=== PATIENT | male | born 1945 ===

== ENCOUNTER 2018-02-24 11:25 | Inpatient (IN) ==
[2018-02-24] MEDS ORDERED: Propofol 1000 mg/100 ml Inj 1,000 MG/100 ML BOTTLE ONE (11:40)
[2018-02-24 11:49] LABS: Baso # (Auto) 0.1 th/mm3 (0.0-0.2); Baso % (Auto) 0.8 % (0.0-2.0); Eos # (Auto) 0.1 th/mm3 (0.0-0.4); Eos % (Auto) 1.2 % (0.0-4.0); Hematocrit 39.9 % (39.0-51.0); Hemoglobin 13.5 gm/dL (13.0-17.0); Lymph # (Auto) 2.4 th/mm3 (1.0-4.8); Lymph % (Auto) 21.7 % (9.0-44.0); Mean Corpuscular Volume 91.2 fL (80.0-100.0); Mean Platelet Volume 8.7 fL (7.0-11.0); Mono # (Auto) 0.7 th/mm3 (0.0-0.9); Mono % (Auto) 5.8 % (0.0-8.0); Neut # (Auto) 7.9 th/mm3 (1.8-7.7); Neut % (Auto) 70.5 % (16.0-70.0); Platelet Count 186 th/mm3 (150-450); Red Blood Count 4.37 mil/mm3 (4.50-5.90); Red Cell Distribution Width 13.9 % (11.6-17.2); White Blood Count 11.2 th/mm3 (4.0-11.0)
[2018-02-24] MEDS ORDERED: Midazolam Inj 5 MG/ML 1 ML Vial ONE (11:54)
[2018-02-24] MEDS ORDERED: Etomidate Inj 20 MG/10 ML Ampul IV.PUSH ONE (11:55)
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
[2018-02-24 12:05] LABS: Activated Partial Thrombo Time 19.6 sec (24.3-30.1); Prothrombin Time 10.6 sec (9.8-11.6)
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
--- NOTE | 2018-02-24 12:12 | ED ---
HPI General Chief Complaint: Trauma Alert Stated Complaint: Trauma Time Seen by Provider: 02/24/18 11:43 Related Data Allergies Allergy/AdvReac Type Severity Reaction Status Date / Time No Allergy Information Allergy Unverified 02/24/18 11:26 Available Medical Decision Making Lab Data Result diagrams: 02/24/18 11:28 Lab Results 02/24/18 02/24/18 02/24/18 Range/Units 11:28 11:28 11:28 WBC 11.2 H (4.0-11.0) th/mm3 RBC 4.37 L (4.50-5.90) mil/mm3 Hgb 13.5 (13.0-17.0) gm/dL POC Hgb (Calc) 12.6 L (13.0-17.0) g/dL Hct 39.9 (39.0-51.0) % POC Hct 37.0 L (39-51.0) % MCV 91.2 (80.0-100.0) fL MCH 31.0 (27.0-34.0) pg MCHC 34.0 (32.0-36.0) % RDW 13.9 (11.6-17.2) % Plt Count 186 (150-450) th/mm3 MPV 8.7 (7.0-11.0) fL Neut % (Auto) 70.5 H (16.0-70.0) % Lymph % (Auto) 21.7 (9.0-44.0) % Wood % (Auto) 5.8 (0.0-8.0) % Eos % (Auto) 1.2 (0.0-4.0) % Baso % (Auto) 0.8 (0.0-2.0) % Neut # (Auto) 7.9 H (1.8-7.7) th/mm3 Lymph # (Auto) 2.4 (1.0-4.8) th/mm3 Wood # (Auto) 0.7 (0.0-0.9) th/mm3 Eos # (Auto) 0.1 (0.0-0.4) th/mm3 Baso # (Auto) 0.1 (0.0-0.2) th/mm3 WBC Differential . Differential Comment Auto diff final PT 10.6 (9.8-11.6) sec INR 1.0 Ratio APTT 19.6 L (24.3-30.1) sec Fibrinogen (227-377) mg/dL POC Sodium 140 (137-144) mmol/L POC Potassium 3.5 L (3.6-5.0) mmol/L POC Chloride 110 (102-111) mmol/L POC BUN 13 (5-21) mg/dL POC Creatinine 1.0 (0.6-1.3) mg/dL POC Glucose 156 H (68-110) mg/dL Blood Type 02/24/18 02/24/18 Range/Units 11:28 11:28 WBC (4.0-11.0) th/mm3 RBC (4.50-5.90) mil/mm3 Hgb (13.0-17.0) gm/dL POC Hgb (Calc) (13.0-17.0) g/dL Hct (39.0-51.0) % POC Hct (39-51.0) % MCV (80.0-100.0) fL MCH (27.0-34.0) pg MCHC (32.0-36.0) % RDW (11.6-17.2) % Plt Count (150-450) th/mm3 MPV (7.0-11.0) fL Neut % (Auto) (16.0-70.0) % Lymph % (Auto) (9.0-44.0) % Wood % (Auto) (0.0-8.0) % Eos % (Auto) (0.0-4.0) % Baso % (Auto) (0.0-2.0) % Neut # (Auto) (1.8-7.7) th/mm3 Lymph # (Auto) (1.0-4.8) th/mm3 Wood # (Auto) (0.0-0.9) th/mm3 Eos # (Auto) (0.0-0.4) th/mm3 Baso # (Auto) (0.0-0.2) th/mm3 WBC Differential Differential Comment PT (9.8-11.6) sec INR Ratio APTT (24.3-30.1) sec Fibrinogen 235 (227-377) mg/dL POC Sodium (137-144) mmol/L POC Potassium (3.6-5.0) mmol/L POC Chloride (102-111) mmol/L POC BUN (5-21) mg/dL POC Creatinine (0.6-1.3) mg/dL POC Glucose (68-110) mg/dL Blood Type A Positive Imaging Data Radiologist's impression: Chest X-Ray 02/24/18 11:26 CONCLUSION: Satisfactory trauma chest appearance Pelvis X-Ray 02/24/18 11:26 CONCLUSION: Satisfactory trauma pelvis appearance. Head CT 02/24/18 11:28 CONCLUSION: 1. Small volume of acute subarachnoid blood products layering along the sulci in the frontal lobes bilaterally, left greater than right. Also, there there are blood products along the interhemispheric fissure and questionable blood products abutting the medial right anterior temporal lobe. 2. No skull fracture is identified, however, there is left frontal scalp soft tissue swelling with hematoma and left periorbital soft tissue swelling. 3. Air-fluid levels with blood products in the paranasal sinuses. . Femur X-Ray 02/24/18 11:29 CONCLUSION: No acute fracture on limited AP view. Discharge Plan Physicians Team ED Provider: Luisa Rollins Primary Care Provider: UNKNOWN, Attending Provider: Junito Mortensen Status ED Status: Admitted Patient
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
[2018-02-24] MEDS: Midazolam 50 MG/50 ML Inj 50 MG/50 ML BAG IV.CONT ONE ×2 (12:36→12:46)
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
[2018-02-24] MEDS ORDERED: Bisacodyl 10 MG Supp RECTAL PRN (12:57)
[2018-02-24] MEDS ORDERED: Post-op Orders (for Pharmacy) OTHER ONE (12:57)
[2018-02-24] MEDS ORDERED: Naloxone Inj 0.4 MG/ML Vial IV.PUSH PRN (12:57)
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
[2018-02-24] MEDS: Propofol 1000 mg/100 ml Inj 1,000 MG/100 ML BOTTLE IV.CONT PRN (13:45)
[2018-02-24] MEDS: fentaNYL 10 mcg/mL Premix Drip 2,500 MCG/250 ML BAG IV.SIG PRN (13:49)
[2018-02-24] MEDS: Sod Chloride 0.9% Inj 1,000 ML IV.CONT SCH (13:49)
[2018-02-24] MEDS: Pantoprazole Inj 40 MG Vial IV.PUSH SCH (13:49)
[2018-02-24] MEDS: Midazolam 50 MG/50 ML Inj 50 MG/50 ML BAG IV.CONT PRN ×2 (14:45→20:00)
[2018-02-24 15:40] LABS: ABG Base Excess -4.2 mmol/L (-2-2); ABG PCO2 43 mmHg (38-42); ABG PO2 302 mmHg (61-120)
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
[2018-02-24 16:53] LABS: Creatine Kinase 272 U/L (39-308)
[2018-02-24] MEDS ORDERED: Sod Chloride 0.9% Inj 1,000 ML IV.SIG ONE (17:00)
[2018-02-24 17:19] LABS: Creatine Kinase MB 5.9 ng/mL (0.5-3.6)
--- NOTE | 2018-02-24 17:21 | ECHRPT ---
Indication: SOB CONCLUSIONS Normal left ventricular size. Wall thickness is normal. The left ventricular systolic function is normal with an estimated ejection fraction in the range of 55-60%. Mitral annular calcification is present. Trace mitral valve regurgitation. Aortic valve sclerosis is present. BP: / HR: Rhythm: MEASUREMENTS (Male / Female) Normal Values Technical Quality: 2D ECHO LV Diastolic Diameter PLAX 4.5 cm 4.2 - 5.9 / 3.9 - 5.3 cm LV Systolic Diameter PLAX 3.4 cm IVS Diastolic Thickness 1.1 cm 0.6 - 1.0 / 0.6 - 0.9 cm LVPW Diastolic Thickness 0.8 cm 0.6 - 1.0 / 0.6 - 0.9 cm LV Relative Wall Thickness 0.4 RV Internal Dim ED PLAX 2.4 cm DOPPLER Mitral E Point Velocity 65.6 cm/s Mitral A Point Velocity 71.6 cm/s Mitral E to A Ratio 0.9 TR Peak Velocity 111.0 cm/s TR Peak Gradient 4.9 mmHg Right Atrial Pressure 10.0 mmHg Pulmonary Artery Systolic Pressu 14.9 mmHg Right Ventricular Systolic Press 14.9 mmHg FINDINGS LEFT VENTRICLE Normal left ventricular size. Wall thickness is normal. The left ventricular systolic function is normal with an estimated ejection fraction in the range of 55-60%. RIGHT VENTRICLE Normal right ventricular size and systolic function. LEFT ATRIUM The left atrial size is normal. RIGHT ATRIUM The right atrial size is normal. ATRIAL SEPTUM Normal atrial septal thickness without atrial level shunting by limited color doppler interrogation. AORTA The aortic root and proximal ascending aorta are normal in size on limited imaging. MITRAL VALVE Mitral annular calcification is present. Trace mitral valve regurgitation. AORTIC VALVE Aortic valve sclerosis is present. TRICUSPID VALVE Structurally normal tricuspid valve. No tricuspid valve stenosis or regurgitation. PULMONARY VALVE No pulmonary valve regurgitation or stenosis. VESSELS The inferior vena cava is normal in size. PERICARDIUM No pericardial effusion. Bianca Hamilton MD, FACC (Electronically Signed) Final Date:24 February 2018 17:20
[2018-02-24] MEDS: Senna/Docusate Sodium 8.6/50 MG Tablet PO SCH (21:38)
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
[2018-02-25] MEDS: Sod Chloride 0.9% Inj 1,000 ML IV.CONT SCH ×4 (00:31→20:33)
[2018-02-25 05:45] LABS: Baso % (Auto) 0.1 % (0.0-2.0); Eos % (Auto) 0.3 % (0.0-4.0); Hematocrit 32.3 % (39.0-51.0); Hemoglobin 11.2 gm/dL (13.0-17.0); Lymph # (Auto) 0.7 th/mm3 (1.0-4.8); Mean Corpuscular HGB Conc 34.8 % (32.0-36.0); Mean Corpuscular Hemoglobin 32.1 pg (27.0-34.0); Mean Corpuscular Volume 92.3 fL (80.0-100.0); Mean Platelet Volume 8.6 fL (7.0-11.0); Mono # (Auto) 0.8 th/mm3 (0.0-0.9); Mono % (Auto) 8.8 % (0.0-8.0); Neut % (Auto) 83.8 % (16.0-70.0); Platelet Count 154 th/mm3 (150-450); Red Cell Distribution Width 13.8 % (11.6-17.2); White Blood Count 9.6 th/mm3 (4.0-11.0)
[2018-02-25] MEDS: fentaNYL 10 mcg/mL Premix Drip 2,500 MCG/250 ML BAG IV.SIG PRN (05:52)
[2018-02-25 05:58] LABS: INR 1.1 Ratio; Prothrombin Time 10.7 sec (9.8-11.6)
[2018-02-25 06:18] LABS: Albumin 3.1 g/dL (3.4-5.0); Anion Gap 9 meq/L (5-15); Aspartate Aminotransferase 26 U/L (15-37); Blood Urea Nitrogen 14 mg/dL (7-18); Calcium 7.5 mg/dL (8.5-10.1); Carbon Dioxide 24.4 meq/L (21.0-32.0); Chloride 111 meq/L (98-107); Glomerular Filtration Rate Greater Than 89 mL/min (>89); Glucose,Random 108 mg/dL (74-106); Potassium 4.2 meq/L (3.5-5.1); Sodium 144 meq/L (136-145)
[2018-02-25 06:19] LABS: Alanine Aminotransferase 22 U/L (12-78)
[2018-02-25 06:22] LABS: Alkaline Phosphatase 38 U/L (45-117); Total Protein 5.9 g/dL (6.4-8.2)
[2018-02-25] MEDS ORDERED: Potassium Chloride 25 MEQ Effervescent Tablet PO PRN (06:22)
[2018-02-25] MEDS ORDERED: Potassium Phosphate Inj 30 MMOL in Sodium Chlor 0.9% Inj 250 ML IV.SIG PRN (06:22)
[2018-02-25] MEDS ORDERED: Magnesium Sulfate Inj 2 GM in Sodium Chlor 0.9% Inj 96 ML IV.SIG PRN (06:22)
[2018-02-25] MEDS ORDERED: Potassium Chlor 40 mEq Premix 40 MEQ/100 ML PIGGYBACK IV.SIG PRN (06:22)
[2018-02-25] MEDS ORDERED: Potassium Phosphate 500 MG Soluble Tablet PO PRN ×2 (06:22)
[2018-02-25] MEDS ORDERED: Magnesium Sulfate Inj 4 GM in Sodium Chlor 0.9% Inj 92 ML IV.SIG PRN (06:22)
[2018-02-25] MEDS ORDERED: Magnesium Oxide 400 MG Tablet PO PRN (06:22)
[2018-02-25] MEDS ORDERED: Sodium Phosphate Inj 30 MMOL in Sodium Chlor 0.9% Inj 250 ML IV.SIG PRN (06:22)
[2018-02-25] MEDS: Chlorhexidine 0.12% Oral Kit 15 ML UDC OROPHARYNG SCH ×2 (08:06→20:33)
[2018-02-25] MEDS: Senna/Docusate Sodium 8.6/50 MG Tablet PO SCH ×2 (08:07→20:33)
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
[2018-02-25] MEDS: Midazolam 50 MG/50 ML Inj 50 MG/50 ML BAG IV.CONT PRN (09:14)
--- NOTE | 2018-02-25 10:15 | ECG ---
Date Performed: 02/24/2018 Time Performed: 15:29:50 PTAGE: 72 years EKG: Sinus bradycardia. Normal ECG except for rate NO PREVIOUS TRACING DOCTOR: Alcides Grubbs Interpretating Date/Time 02/25/2018 10:13:53
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
[2018-02-25] MEDS: Oral Hygiene Kit OROPHARYNG SCH ×2 (12:00→16:46)
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
[2018-02-25] MEDS: Pantoprazole Inj 40 MG Vial IV.PUSH SCH (14:00)
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
[2018-02-26] MEDS: Oral Hygiene Kit OROPHARYNG SCH ×4 (00:27→17:28)
[2018-02-26] MEDS: Midazolam 50 MG/50 ML Inj 50 MG/50 ML BAG IV.CONT PRN (01:24)
[2018-02-26] MEDS: fentaNYL 10 mcg/mL Premix Drip 2,500 MCG/250 ML BAG IV.SIG PRN ×2 (03:47→23:43)
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
[2018-02-26 05:44] LABS: Anion Gap 9 meq/L (5-15); Blood Urea Nitrogen 13 mg/dL (7-18); Carbon Dioxide 24.4 meq/L (21.0-32.0); Chloride 114 meq/L (98-107); Glomerular Filtration Rate Greater Than 89 mL/min (>89); Glucose,Random 98 mg/dL (74-106); Potassium 3.8 meq/L (3.5-5.1); Sodium 147 meq/L (136-145)
[2018-02-26 05:56] LABS: Total Protein 5.1 g/dL (6.4-8.2)
[2018-02-26 06:01] LABS: Baso % (Auto) 0.2 % (0.0-2.0); Eos % (Auto) 0.4 % (0.0-4.0); Hematocrit 27.5 % (39.0-51.0); Hemoglobin 9.1 gm/dL (13.0-17.0); Lymph # (Auto) 0.8 th/mm3 (1.0-4.8); Lymph % (Auto) 8.5 % (9.0-44.0); Mean Corpuscular HGB Conc 33.2 % (32.0-36.0); Mean Corpuscular Hemoglobin 30.9 pg (27.0-34.0); Mean Corpuscular Volume 93.2 fL (80.0-100.0); Mono # (Auto) 1.1 th/mm3 (0.0-0.9); Mono % (Auto) 12.1 % (0.0-8.0); Neut # (Auto) 6.9 th/mm3 (1.8-7.7); Neut % (Auto) 78.8 % (16.0-70.0); Platelet Count 112 th/mm3 (150-450); Red Blood Count 2.95 mil/mm3 (4.50-5.90); White Blood Count 8.8 th/mm3 (4.0-11.0)
[2018-02-26] MEDS: Sod Chloride 0.9% Inj 1,000 ML IV.CONT SCH ×2 (06:02→17:28)
[2018-02-26] MEDS: Chlorhexidine 0.12% Oral Kit 15 ML UDC OROPHARYNG SCH ×2 (10:51→22:51)
[2018-02-26] MEDS: Senna/Docusate Sodium 8.6/50 MG Tablet PO SCH ×2 (10:52→22:52)
[2018-02-26] MEDS: Propofol 1000 mg/100 ml Inj 1,000 MG/100 ML BOTTLE IV.CONT PRN ×2 (10:52→14:40)
--- NOTE | 2018-02-26 12:19 | XR ---
EXAM DATE: 02/26/2018 12:11 PM EDT AGE/SEX: 72 years / Male INDICATIONS: Dobhoff placement. CLINICAL DATA: This is the patient's initial encounter. Patient reports that signs and symptoms have been present for 1 day and indicates a pain score of Nonresponsive. MEDICAL/SURGICAL HISTORY: None. None. COMPARISON: No prior exams available for comparison. FINDINGS: 2 AP views of the abdomen. Feeding tube appears to be coiled in the proximal thoracic esophagus. Tip is not visualized. Bowel gas pattern within normal limits. CONCLUSION: Feeding tube coiled in the proximal thoracic esophagus. Tip is not visualized as it is above the fiel d-of-view of the radiograph. Electronically signed by: Aguilar Love MD 02/26/2018 12:18 PM EDT
[2018-02-26] MEDS: Pantoprazole Inj 40 MG Vial IV.PUSH SCH (13:23)
[2018-02-26] MEDS: Acetaminophen 650 MG Supp RECTAL PRN (13:24)
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
[2018-02-27] MEDS: Oral Hygiene Kit OROPHARYNG SCH ×4 (02:16→18:28)
[2018-02-27] MEDS: Sod Chloride 0.9% Inj 1,000 ML IV.CONT SCH ×3 (02:17→22:46)
[2018-02-27] MEDS: Propofol 1000 mg/100 ml Inj 1,000 MG/100 ML BOTTLE IV.CONT PRN (03:36)
[2018-02-27] MEDS: Acetaminophen 650 MG Supp RECTAL PRN ×2 (04:43→21:15)
[2018-02-27 05:24] LABS: Baso % (Auto) 0.2 % (0.0-2.0); Eos % (Auto) 0.4 % (0.0-4.0); Hematocrit 28.3 % (39.0-51.0); Hemoglobin 9.4 gm/dL (13.0-17.0); Lymph # (Auto) 0.7 th/mm3 (1.0-4.8); Lymph % (Auto) 8.9 % (9.0-44.0); Mean Corpuscular HGB Conc 33.4 % (32.0-36.0); Mean Corpuscular Hemoglobin 31.6 pg (27.0-34.0); Mean Corpuscular Volume 94.7 fL (80.0-100.0); Mean Platelet Volume 8.5 fL (7.0-11.0); Mono # (Auto) 0.8 th/mm3 (0.0-0.9); Mono % (Auto) 10.1 % (0.0-8.0); Neut # (Auto) 6.4 th/mm3 (1.8-7.7); Neut % (Auto) 80.4 % (16.0-70.0); Platelet Count 115 th/mm3 (150-450); Red Blood Count 2.99 mil/mm3 (4.50-5.90); Red Cell Distribution Width 14.1 % (11.6-17.2); White Blood Count 7.9 th/mm3 (4.0-11.0)
[2018-02-27 05:40] LABS: Anion Gap 7 meq/L (5-15); Blood Urea Nitrogen 12 mg/dL (7-18); Calcium 7.3 mg/dL (8.5-10.1); Carbon Dioxide 25.1 meq/L (21.0-32.0); Chloride 115 meq/L (98-107); Glomerular Filtration Rate Greater Than 89 mL/min (>89); Glucose,Random 112 mg/dL (74-106); Potassium 3.9 meq/L (3.5-5.1); Sodium 147 meq/L (136-145)
[2018-02-27 06:08] LABS: Total Protein 5.7 g/dL (6.4-8.2)
[2018-02-27] MEDS: Senna/Docusate Sodium 8.6/50 MG Tablet PO SCH ×3 (08:28→20:15)
[2018-02-27] MEDS: Chlorhexidine 0.12% Oral Kit 15 ML UDC OROPHARYNG SCH ×2 (08:29→20:08)
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
[2018-02-27 10:37] LABS: ABG Base Excess 0.5 mmol/L (-2-2); ABG PCO2 41 mmHg (38-42); ABG PO2 103 mmHg (61-120)
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
[2018-02-27] MEDS: Heparin - SQ 10,000 UNITS/ML Vial SQ SCH ×2 (11:51→20:14)
[2018-02-27] MEDS: Bisacodyl 10 MG Supp RECTAL SCH (11:52)
[2018-02-27] MEDS: Pantoprazole Inj 40 MG Vial IV.PUSH SCH (12:00)
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
[2018-02-27] MEDS: fentaNYL 10 mcg/mL Premix Drip 2,500 MCG/250 ML BAG IV.SIG PRN (19:32)
[2018-02-28] MEDS: Oral Hygiene Kit OROPHARYNG SCH ×4 (01:14→16:45)
[2018-02-28] MEDS: Propofol 1000 mg/100 ml Inj 1,000 MG/100 ML BOTTLE IV.CONT PRN ×2 (02:43→23:52)
[2018-02-28 04:38] LABS: Baso % (Auto) 0.2 % (0.0-2.0); Eos # (Auto) 0.1 th/mm3 (0.0-0.4); Eos % (Auto) 0.7 % (0.0-4.0); Hematocrit 25.2 % (39.0-51.0); Hemoglobin 8.5 gm/dL (13.0-17.0); Lymph # (Auto) 0.6 th/mm3 (1.0-4.8); Lymph % (Auto) 8.7 % (9.0-44.0); Mean Corpuscular HGB Conc 33.7 % (32.0-36.0); Mean Corpuscular Hemoglobin 31.4 pg (27.0-34.0); Mean Corpuscular Volume 93.2 fL (80.0-100.0); Mean Platelet Volume 8.6 fL (7.0-11.0); Mono # (Auto) 0.7 th/mm3 (0.0-0.9); Mono % (Auto) 9.6 % (0.0-8.0); Neut # (Auto) 5.8 th/mm3 (1.8-7.7); Neut % (Auto) 80.8 % (16.0-70.0); Platelet Count 141 th/mm3 (150-450); Red Cell Distribution Width 13.9 % (11.6-17.2); White Blood Count 7.2 th/mm3 (4.0-11.0)
[2018-02-28 05:00] LABS: Anion Gap 4 meq/L (5-15); Blood Urea Nitrogen 16 mg/dL (7-18); Calcium 7.7 mg/dL (8.5-10.1); Carbon Dioxide 29.5 meq/L (21.0-32.0); Chloride 118 meq/L (98-107); Glomerular Filtration Rate Greater Than 89 mL/min (>89); Glucose,Random 109 mg/dL (74-106); Potassium 3.8 meq/L (3.5-5.1); Sodium 151 meq/L (136-145)
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
[2018-02-28] MEDS: Sod Chloride 0.9% Inj 1,000 ML IV.CONT SCH ×2 (08:00→18:44)
[2018-02-28] MEDS: Chlorhexidine 0.12% Oral Kit 15 ML UDC OROPHARYNG SCH ×2 (08:01→20:28)
[2018-02-28] MEDS: Bisacodyl 10 MG Supp RECTAL SCH (08:01)
[2018-02-28] MEDS: Heparin - SQ 10,000 UNITS/ML Vial SQ SCH ×2 (08:01→20:28)
[2018-02-28] MEDS: Senna/Docusate Sodium 8.6/50 MG Tablet PO SCH ×2 (08:02→20:29)
[2018-02-28] MEDS: Dexmedetomidine Inj 200 MCG in Sodium Chlor 0.9% Inj 48 ML IV.CONT PRN ×3 (10:57→20:45)
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
[2018-02-28] MEDS: fentaNYL 10 mcg/mL Premix Drip 2,500 MCG/250 ML BAG IV.SIG PRN (11:43)
[2018-02-28] MEDS: Pantoprazole Inj 40 MG Vial IV.PUSH SCH (13:05)
[2018-02-28] MEDS ORDERED: Iohexol 350 MG/ML 50 ML Vial (for Rad Diag) NG/OG ONE (14:00)
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
[2018-02-28] MEDS ORDERED: Dexmedetomidine Inj 1,000 MCG in Sodium Chlor 0.9% Inj 240 ML IV.CONT PRN (22:14)
[2018-02-28] MEDS ORDERED: Propofol Inj 500 MG/50 ML Vial ONE (23:21)
[2018-03-01] MEDS: Piperacil/Tazo 3.375 GM Premix 50 ML IV.SIG SCH ×4 (00:02→23:32)
[2018-03-01] MEDS: Oral Hygiene Kit OROPHARYNG SCH ×5 (00:36→23:32)
[2018-03-01] MEDS ORDERED: Vancomycin Inj 1,000 MG in Sodium Chlor 0.9% Inj 250 ML IV.SIG SCH (01:00)
--- NOTE | 2018-03-01 04:20 | XR ---
EXAM DATE: 03/01/2018 4:12 AM EDT AGE/SEX: 72 years / Male INDICATIONS: Shortness of breath. CLINICAL DATA: This is the patient's subsequent encounter. Patient reports that signs and symptoms h ave been present for 4 - 6 days and indicates a pain score of Nonresponsive. MEDICAL/SURGICAL HISTORY: Non-responsive. Non-responsive. [place] [facility] [place]. . FINDINGS: A single AP view of the chest demonstrates worsening bibasilar consolidations. Tip the endotracheal t ube 3 cm proximal to julia. A catheter overlies the midline likely relating to a weighted feeding tu be. This courses off the inferior margin of the film. Heart is normal in size. No discernible effusio ns. CONCLUSION: Worsening bibasilar infiltrates. Electronically signed by: Charles Castro MD 03/01/2018 4:18 AM EDT
[2018-03-01 04:44] LABS: Hematocrit 24.8 % (39.0-51.0); Hemoglobin 8.5 gm/dL (13.0-17.0); Mean Corpuscular HGB Conc 34.4 % (32.0-36.0); Mean Corpuscular Hemoglobin 31.8 pg (27.0-34.0); Mean Corpuscular Volume 92.4 fL (80.0-100.0); Mean Platelet Volume 8.5 fL (7.0-11.0); Platelet Count 154 th/mm3 (150-450); Red Blood Count 2.68 mil/mm3 (4.50-5.90); Red Cell Distribution Width 14.1 % (11.6-17.2); White Blood Count 8.1 th/mm3 (4.0-11.0)
[2018-03-01 05:07] LABS: Anion Gap 7 meq/L (5-15); Blood Urea Nitrogen 23 mg/dL (7-18); Calcium 7.4 mg/dL (8.5-10.1); Carbon Dioxide 25.5 meq/L (21.0-32.0); Chloride 119 meq/L (98-107); Glomerular Filtration Rate Greater Than 89 mL/min (>89); Glucose,Random 115 mg/dL (74-106); Potassium 3.5 meq/L (3.5-5.1); Sodium 151 meq/L (136-145)
[2018-03-01] MEDS: Sod Chloride 0.9% Inj 1,000 ML IV.CONT SCH (05:08)
[2018-03-01 05:21] LABS: Total Protein 5.6 g/dL (6.4-8.2)
[2018-03-01 05:44] LABS: ABG Base Excess -0.1 mmol/L (-2-2); ABG PCO2 41 mmHg (38-42); ABG PO2 82 mmHg (61-120)
[2018-03-01] MEDS ORDERED: Vancomycin Consult Pharmacy OTHER PRN (06:47)
[2018-03-01] MEDS: Propofol 1000 mg/100 ml Inj 1,000 MG/100 ML BOTTLE IV.CONT PRN ×4 (07:03→15:24)
[2018-03-01 07:59] LABS: Lymphocytes 7 % (9-44); Metamyelocytes 2 % (0-1); Monocytes 4 % (0-8)
[2018-03-01 08:00] LABS: Dohle Bodies Present; Platelet Estimate Normal (Normal); Platelet Morphology Normal (Normal)
[2018-03-01] MEDS: Bisacodyl 10 MG Supp RECTAL SCH (09:16)
[2018-03-01] MEDS: Chlorhexidine 0.12% Oral Kit 15 ML UDC OROPHARYNG SCH ×2 (09:16→20:05)
[2018-03-01] MEDS: Heparin - SQ 10,000 UNITS/ML Vial SQ SCH (09:16)
[2018-03-01] MEDS: Senna/Docusate Sodium 8.6/50 MG Tablet PO SCH ×2 (09:17→20:06)
--- NOTE | 2018-03-01 09:33 | P.PNOP ---
Subjective Interval history: intubated Physical Exam Vital signs: Vital Signs 02/28/18 11:29 02/28/18 12:00 02/28/18 15:45 Temperature 99 F Pulse Rate 57 L 58 L 53 L Respiratory Rate 32 H 18 18 Blood Pressure 108/53 L Pulse Oximetry 99 99 02/28/18 16:00 02/28/18 19:58 02/28/18 20:00 Temperature 98.0 F 97.7 F Pulse Rate 51 L 47 L 46 L Respiratory Rate 18 18 18 Blood Pressure 131/67 131/67 Pulse Oximetry 100 02/28/18 21:54 02/28/18 21:55 02/28/18 23:37 Temperature Pulse Rate 71 65 Respiratory Rate 26 H 19 Blood Pressure Pulse Oximetry 94 L 03/01/18 00:00 03/01/18 01:28 03/01/18 03:28 Temperature 102.3 F H Pulse Rate 63 54 L Respiratory Rate 18 18 18 Blood Pressure 103/59 L Pulse Oximetry 100 03/01/18 04:00 03/01/18 04:11 03/01/18 08:00 Temperature 97.3 F L 99.2 F Pulse Rate 55 L 61 Respiratory Rate 18 18 15 Blood Pressure 90/50 L 101/55 L Pulse Oximetry 100 96 03/01/18 08:20 Temperature Pulse Rate 60 Respiratory Rate 18 Blood Pressure Pulse Oximetry Intake & Output 02/28/18 03/01/18 03/01/18 18:59 06:59 18:59 Intake Total 2405 / 2405 1737 / 1737 100 / 100 Output Total 550 / 550 500 / 500 Balance 1855 / 1855 1237 / 1237 100 / 100 Weight 96.5 kg Intake: IV 2405 / 2405 1555 / 1555 100 / 100 Precedex Inj 200 MCG In NS Inj 50 / 50 50 / 50 48 ML @ 0.2 MCG/KG/HR 4.58 mls/ hr IV.CONT TITRATE PRN Rx#: [id number] Diprivan 1000 mg/100 ml Inj 1, 100 / 100 000 mg In 100 ml @ 5 MCG/KG/MIN 2.751 mls/hr IV.CONT TITRATE PRN Rx#:[id number] NS Inj 1,000 ML @ 100 mls/hr IV 1999 / 1999 1000 / 1000 .CONT .Q10H KALIE Rx#:[id number] Ofirmev Inj 1,000 mg In 100 ml 100 / 100 @ 400 mls/hr IV.SIG Q6H PRN Rx# :[id number] Zosyn 3.375 GM Premix 50 ML @ 50 / 50 100 mls/hr IV.SIG Q8H KALIE Rx#: [id number] Vancomycin Inj 1,000 MG In NS 250 / 250 Inj 250 ML @ 250 mls/hr IV.SIG Q12H KALIE Rx#:[id number] fentaNYL 10 mcg/mL Premix Drip 250 / 250 2,500 mcg In 250 ml @ 50 MCG/HR 5 mls/hr IV.SIG TITRATE PRN Rx #:[id number] Keppra Inj 500 MG In NS Inj 100 105 / 105 105 / 105 ML @ 400 mls/hr IV.SIG Q12H KALIE Rx#:[id number] Tube Feeding 182 / 182 Output: Urine Amount (Catheter) 550 / 550 500 / 500 Indwelling Temp Sensing 550 / 550 500 / 500 Catheter Narrative: intubated, sedated, restrained L clavicle minimal swelling - Urinary Catheter Management Indwelling Temp Sensing Catheter Cath placed during this visit: yes Reason for continuing: Hourly intake/output Insertion date: 02/24/18 Insertion time: 14:00 Results - Labs CBC & Chem 7: 03/01/18 04:15 03/01/18 04:15 Laboratory Results - last 24 hr 03/01/18 03/01/18 03/01/18 04:15 04:15 05:35 WBC 8.1 RBC 2.68 L Hgb 8.5 L Hct 24.8 L MCV 92.4 MCH 31.8 MCHC 34.4 RDW 14.1 Plt Count 154 MPV 8.5 Prelim Diff (Auto) Manual diff required WBC Differential Manual diff final Seg Neuts % (Manual) 44 Band Neuts % (Manual) 42 H Lymphocytes % (Manual) 7 L Monocytes % (Manual) 4 Basophils % (Manual) 1 Metamyelocytes % (Man) 2 H Abs Neuts (Manual) 7.1 Differential Comment . Dohle Bodies Present H Platelet Estimate Normal Platelet Morphology Normal Puncture Site Right radial Patient Temperature 98.6 O2 Saturation 95 ABG pH 7.39 ABG pCO2 41 ABG pO2 82 ABG HCO3 24 ABG O2 Content 12.3 ABG Base Excess -0.1 ABG Methemoglobin 0.9 Osvaldo Test Present Hemoglobin 9.2 L Carboxyhemoglobin 1.3 O2 Delivery Device Ventilator Vent Setting Prvc/ac Inspired O2 40 Critical Value No Sodium 151 H Potassium 3.5 Chloride 119 H Carbon Dioxide 25.5 Anion Gap 7 BUN 23 H Creatinine 0.71 Estimated GFR Greater than 89 Random Glucose 115 H Calcium 7.4 L* Prot Corrected Calcium 8.2 L Total Protein 5.6 L Microbiology 02/27/18 21:20 Clean Catch Urine Urine Culture - Preliminary Staphylococcus coag negative 02/27/18 23:30 Sputum - Endotracheal Gram Stain - Final - Imaging Impressions Gastrostomy Tube Placement 02/28/18 00:00 CONCLUSION: 1. Uncomplicated Dobbhoff tube placement as above. Please note that the weighted tip was removed to allow for over the guidewire catheter positioning. Chest X-Ray 03/01/18 05:00 CONCLUSION: Worsening bibasilar infiltrates. Assessment and Plan - Assessment and Plan minimally displaced L clavicle fx non-op sling as needed when not in restraints f/up as OP in 3 weeks
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
[2018-03-01] MEDS: Pantoprazole Inj 40 MG Vial IV.PUSH SCH (13:23)
[2018-03-01] MEDS: Vancomycin Inj 1,750 MG in Sodium Chlor 0.9% Inj 500 ML IV.SIG SCH (13:51)
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
[2018-03-01] MEDS: Enoxaparin Inj 40 MG/0.4 ML Syringe SQ SCH (20:06)
[2018-03-02] MEDS: Propofol 1000 mg/100 ml Inj 1,000 MG/100 ML BOTTLE IV.CONT PRN ×2 (00:31→08:23)
[2018-03-02] MEDS: Vancomycin Inj 1,750 MG in Sodium Chlor 0.9% Inj 500 ML IV.SIG SCH ×2 (01:44→13:12)
[2018-03-02] MEDS: Oral Hygiene Kit OROPHARYNG SCH ×3 (03:28→15:11)
[2018-03-02] MEDS: fentaNYL 10 mcg/mL Premix Drip 2,500 MCG/250 ML BAG IV.SIG PRN (05:15)
[2018-03-02 05:38] LABS: Baso % (Auto) 0.3 % (0.0-2.0); Eos # (Auto) 0.2 th/mm3 (0.0-0.4); Hematocrit 25.4 % (39.0-51.0); Hemoglobin 8.4 gm/dL (13.0-17.0); Lymph # (Auto) 0.9 th/mm3 (1.0-4.8); Lymph % (Auto) 8.4 % (9.0-44.0); Mean Corpuscular HGB Conc 33.1 % (32.0-36.0); Mean Corpuscular Hemoglobin 30.8 pg (27.0-34.0); Mean Platelet Volume 8.3 fL (7.0-11.0); Mono # (Auto) 0.9 th/mm3 (0.0-0.9); Neut # (Auto) 8.9 th/mm3 (1.8-7.7); Neut % (Auto) 81.3 % (16.0-70.0); Platelet Count 210 th/mm3 (150-450); Red Blood Count 2.74 mil/mm3 (4.50-5.90); Red Cell Distribution Width 14.2 % (11.6-17.2); White Blood Count 10.9 th/mm3 (4.0-11.0)
[2018-03-02 06:04] LABS: Anion Gap 9 meq/L (5-15); Blood Urea Nitrogen 18 mg/dL (7-18); Calcium 7.2 mg/dL (8.5-10.1); Carbon Dioxide 28.2 meq/L (21.0-32.0); Chloride 117 meq/L (98-107); Glomerular Filtration Rate Greater Than 89 mL/min (>89); Glucose,Random 106 mg/dL (74-106); Potassium 3.2 meq/L (3.5-5.1); Sodium 154 meq/L (136-145)
[2018-03-02 06:23] LABS: Total Protein 5.7 g/dL (6.4-8.2)
[2018-03-02 07:42] LABS: Eosinophils 3 % (0-4); Lymphocytes 6 % (9-44); Metamyelocytes 2 % (0-1); Monocytes 8 % (0-8); Platelet Estimate Normal (Normal); Platelet Morphology Normal (Normal); RBC Morphology Normal (Normal)
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
[2018-03-02] MEDS: Piperacil/Tazo 3.375 GM Premix 50 ML IV.SIG SCH ×2 (08:22→15:11)
[2018-03-02] MEDS: Chlorhexidine 0.12% Oral Kit 15 ML UDC OROPHARYNG SCH ×2 (08:22→20:10)
[2018-03-02] MEDS: Bisacodyl 10 MG Supp RECTAL SCH (08:23)
[2018-03-02] MEDS: Enoxaparin Inj 40 MG/0.4 ML Syringe SQ SCH (08:23)
[2018-03-02] MEDS: Senna/Docusate Sodium 8.6/50 MG Tablet PO SCH ×2 (08:23→20:11)
[2018-03-02] MEDS: Potassium Chlor 20 mEq Premix 20 MEQ/100 ML PIGGYBACK IV.SIG PRN ×2 (10:26→12:27)
[2018-03-02] MEDS ORDERED: hydrALAZINE HCl Inj 20 MG/ML Vial IV.PUSH PRN (12:10)
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
[2018-03-02] MEDS: Pantoprazole Inj 40 MG Vial IV.PUSH SCH (13:12)
[2018-03-02] MEDS: Clevidipine Inj 25 MG/50 ML VIAL IV.CONT PRN ×2 (15:12→22:30)
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
--- NOTE | 2018-03-02 17:16 | XR ---
EXAM DATE: 03/02/2018 5:07 PM EDT AGE/SEX: 72 years / Male INDICATIONS: Respiratory status. CLINICAL DATA: This is the patient's subsequent encounter. Patient reports that signs and symptoms h ave been present for 2 days and indicates a pain score of Nonresponsive. MEDICAL/SURGICAL HISTORY: Non-responsive. Non-responsive. COMPARISON: C, CHEST 1V SINGLE AP, 03/01/2018. . FINDINGS: Heart is normal in size. ET tube is in good position. Bibasilar parenchymal changes are evident with small pleural effusions. There is no pneumothorax. CONCLUSION: ET tube in good position. Small bilateral pleural effusions. Electronically signed by: Amador rFeed MD 03/02/2018 5:14 PM EDT
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
[2018-03-02] MEDS: Lisinopril 10 MG Tablet PO SCH (20:11)
[2018-03-03] MEDS: Piperacil/Tazo 3.375 GM Premix 50 ML IV.SIG SCH ×3 (00:30→16:59)
[2018-03-03] MEDS: Oral Hygiene Kit OROPHARYNG SCH ×4 (00:30→17:12)
[2018-03-03] MEDS ORDERED: Pharmacy Ordered Lab Info OTHER ONE (01:45)
[2018-03-03] MEDS: Vancomycin Inj 1,750 MG in Sodium Chlor 0.9% Inj 500 ML IV.SIG SCH (02:34)
[2018-03-03 04:19] LABS: Baso % (Auto) 0.2 % (0.0-2.0); Eos # (Auto) 0.1 th/mm3 (0.0-0.4); Eos % (Auto) 1.1 % (0.0-4.0); Hematocrit 27.4 % (39.0-51.0); Hemoglobin 9.2 gm/dL (13.0-17.0); Lymph # (Auto) 0.8 th/mm3 (1.0-4.8); Lymph % (Auto) 6.8 % (9.0-44.0); Mean Corpuscular HGB Conc 33.5 % (32.0-36.0); Mean Corpuscular Hemoglobin 30.9 pg (27.0-34.0); Mean Corpuscular Volume 92.1 fL (80.0-100.0); Mean Platelet Volume 7.4 fL (7.0-11.0); Mono # (Auto) 0.8 th/mm3 (0.0-0.9); Mono % (Auto) 7.3 % (0.0-8.0); Neut # (Auto) 9.5 th/mm3 (1.8-7.7); Neut % (Auto) 84.6 % (16.0-70.0); Platelet Count 272 th/mm3 (150-450); Red Blood Count 2.98 mil/mm3 (4.50-5.90); Red Cell Distribution Width 14.6 % (11.6-17.2); White Blood Count 11.2 th/mm3 (4.0-11.0)
[2018-03-03 04:45] LABS: Anion Gap 9 meq/L (5-15); Blood Urea Nitrogen 15 mg/dL (7-18); Calcium 8.1 mg/dL (8.5-10.1); Carbon Dioxide 30.4 meq/L (21.0-32.0); Chloride 114 meq/L (98-107); Glomerular Filtration Rate Greater Than 89 mL/min (>89); Glucose,Random 130 mg/dL (74-106); Potassium 3.1 meq/L (3.5-5.1); Sodium 153 meq/L (136-145)
[2018-03-03 05:21] LABS: Eosinophils 1 % (0-4); Lymphocytes 12 % (9-44); Monocytes 3 % (0-8); Myelocytes 2 % (0-0); Platelet Estimate Normal (Normal); Platelet Morphology Normal (Normal); Promyelocyte 1 % (0-0); RBC Morphology Normal (Normal)
[2018-03-03] MEDS: Levothyroxine 75 MCG Tablet PO SCH (05:27)
[2018-03-03] MEDS: Potassium Chlor 20 mEq Premix 20 MEQ/100 ML PIGGYBACK IV.SIG PRN ×5 (05:28→22:46)
[2018-03-03] MEDS: Clevidipine Inj 25 MG/50 ML VIAL IV.CONT PRN ×2 (05:29→14:47)
[2018-03-03] MEDS ORDERED: LEVOTHYROXINE 75 MCG PO SCH (07:00)
[2018-03-03] MEDS: Lisinopril 10 MG Tablet PO SCH ×2 (08:11→22:22)
[2018-03-03] MEDS: Senna/Docusate Sodium 8.6/50 MG Tablet PO SCH ×2 (08:11→22:22)
[2018-03-03] MEDS: Bisacodyl 10 MG Supp RECTAL SCH (08:12)
[2018-03-03] MEDS: Chlorhexidine 0.12% Oral Kit 15 ML UDC OROPHARYNG SCH ×2 (08:12→22:21)
[2018-03-03] MEDS: Enoxaparin Inj 40 MG/0.4 ML Syringe SQ SCH (08:12)
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
[2018-03-03 10:43] LABS: ABG Base Excess 6.1 mmol/L (-2-2); ABG PCO2 42 mmHg (38-42); ABG PO2 93 mmHg (61-120)
[2018-03-03] MEDS: hydrALAZINE 50 MG Tablet PO SCH ×3 (11:22→17:12)
[2018-03-03] MEDS: Pantoprazole Inj 40 MG Vial IV.PUSH SCH (13:05)
[2018-03-03] MEDS: Vancomycin Inj 2,000 MG in Sodium Chlor 0.9% Inj 500 ML IV.SIG SCH (13:05)
[2018-03-03] MEDS ORDERED: Potassium Chloride 25 MEQ Effervescent Tablet PO ONE (13:30)
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
[2018-03-03 19:37] LABS: ABG Base Excess 7.1 mmol/L (-2-2); ABG PCO2 37 mmHg (38-42); ABG PO2 79 mmHg (61-120)
[2018-03-04] MEDS: Potassium Chlor 20 mEq Premix 20 MEQ/100 ML PIGGYBACK IV.SIG PRN ×3 (01:00→10:50)
[2018-03-04] MEDS: Piperacil/Tazo 3.375 GM Premix 50 ML IV.SIG SCH ×3 (01:04→15:37)
[2018-03-04] MEDS: Oral Hygiene Kit OROPHARYNG SCH ×2 (01:05→05:15)
[2018-03-04] MEDS: Vancomycin Inj 2,000 MG in Sodium Chlor 0.9% Inj 500 ML IV.SIG SCH (01:48)
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
[2018-03-04 05:54] LABS: Baso % (Auto) 0.1 % (0.0-2.0); Eos % (Auto) 0.3 % (0.0-4.0); Hemoglobin 8.7 gm/dL (13.0-17.0); Lymph # (Auto) 0.7 th/mm3 (1.0-4.8); Lymph % (Auto) 5.8 % (9.0-44.0); Mean Corpuscular HGB Conc 33.6 % (32.0-36.0); Mean Corpuscular Hemoglobin 30.7 pg (27.0-34.0); Mean Corpuscular Volume 91.5 fL (80.0-100.0); Mean Platelet Volume 7.2 fL (7.0-11.0); Mono # (Auto) 1.3 th/mm3 (0.0-0.9); Mono % (Auto) 9.8 % (0.0-8.0); Neut # (Auto) 10.7 th/mm3 (1.8-7.7); Platelet Count 317 th/mm3 (150-450); Red Blood Count 2.84 mil/mm3 (4.50-5.90); Red Cell Distribution Width 14.2 % (11.6-17.2); White Blood Count 12.8 th/mm3 (4.0-11.0)
[2018-03-04 06:00] LABS: ABG PCO2 38 mmHg (38-42); ABG PO2 84 mmHg (60-120)
[2018-03-04] MEDS: Levothyroxine 75 MCG Tablet PO SCH (06:37)
[2018-03-04 07:35] LABS: Calcium 8.1 mg/dL (8.5-10.1); Carbon Dioxide 28.6 meq/L (21.0-32.0); Potassium 3.3 meq/L (3.5-5.1)
[2018-03-04 08:08] LABS: Lymphocytes 6 % (9-44); Monocytes 4 % (0-8); Myelocytes 1 % (0-0); Promyelocyte 1 % (0-0)
[2018-03-04 08:09] LABS: Platelet Estimate Normal (Normal); Platelet Morphology Normal (Normal)
[2018-03-04] MEDS: Enoxaparin Inj 40 MG/0.4 ML Syringe SQ SCH (08:39)
[2018-03-04] MEDS: Bisacodyl 10 MG Supp RECTAL SCH (08:39)
[2018-03-04] MEDS: hydrALAZINE 50 MG Tablet PO SCH ×4 (09:22→17:49)
[2018-03-04] MEDS: Senna/Docusate Sodium 8.6/50 MG Tablet PO SCH ×2 (09:23→20:15)
[2018-03-04] MEDS: Lisinopril 10 MG Tablet PO SCH ×2 (09:23→20:15)
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
[2018-03-04] MEDS ORDERED: Sod Phosphate/Sod Biphosphate (Adult) Enema 133 ML Bottle RECTAL ONE (10:00)
[2018-03-04] MEDS ORDERED: VALPROATE IV.SIG ONE (12:00)
[2018-03-04] MEDS ORDERED: SODIUM CHLOR 0.9% IV.SIG ONE (12:00)
[2018-03-04] MEDS: Pantoprazole Inj 40 MG Vial IV.PUSH SCH (12:11)
[2018-03-04] MEDS ORDERED: Iohexol 350 MG/ML 50 ML Vial (for Rad Diag) IVCONTRAST ONE (14:37)
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
[2018-03-04] MEDS ORDERED: Sodium Chloride 0.45 % Inj 1,000 ML IV.CONT SCH (18:45)
[2018-03-04] MEDS: levoFLOXacin 500 MG Tablet PO SCH (18:53)
[2018-03-05] MEDS ORDERED: Pharmacy Ordered Lab Info OTHER ONE (01:45)
[2018-03-05 05:35] LABS: Baso % (Auto) 0.4 % (0.0-2.0); Eos # (Auto) 0.1 th/mm3 (0.0-0.4); Eos % (Auto) 1.1 % (0.0-4.0); Hemoglobin 8.9 gm/dL (13.0-17.0); Lymph # (Auto) 0.9 th/mm3 (1.0-4.8); Lymph % (Auto) 7.5 % (9.0-44.0); Mean Corpuscular HGB Conc 34.1 % (32.0-36.0); Mean Corpuscular Hemoglobin 31.3 pg (27.0-34.0); Mean Corpuscular Volume 91.9 fL (80.0-100.0); Mean Platelet Volume 7.9 fL (7.0-11.0); Mono # (Auto) 1.1 th/mm3 (0.0-0.9); Mono % (Auto) 9.8 % (0.0-8.0); Neut # (Auto) 9.3 th/mm3 (1.8-7.7); Neut % (Auto) 81.2 % (16.0-70.0); Platelet Count 307 th/mm3 (150-450); Red Blood Count 2.83 mil/mm3 (4.50-5.90); Red Cell Distribution Width 14.7 % (11.6-17.2); White Blood Count 11.4 th/mm3 (4.0-11.0)
[2018-03-05 06:15] LABS: Calcium 8.6 mg/dL (8.5-10.1); Carbon Dioxide 26.3 meq/L (21.0-32.0); Vancomycin,Random 28.8 Comment
[2018-03-05] MEDS: Levothyroxine 75 MCG Tablet PO SCH (06:15)
[2018-03-05] MEDS: Potassium Chlor 40 mEq Premix 40 MEQ/100 ML PIGGYBACK IV.SIG PRN ×2 (06:42→11:04)
[2018-03-05] MEDS: Dextrose 5%/NaCl 0.45% Inj 1,000 ML IV.SIG SCH ×2 (06:42→22:06)
[2018-03-05] MEDS ORDERED: Desmopressin Inj 4 MCG/ML Ampul SQ ONE ×2 (06:45→14:00)
[2018-03-05] MEDS: hydrALAZINE 50 MG Tablet PO SCH ×3 (08:49→17:52)
[2018-03-05] MEDS: Enoxaparin Inj 40 MG/0.4 ML Syringe SQ SCH (08:50)
[2018-03-05] MEDS: Lisinopril 10 MG Tablet PO SCH ×2 (08:50→20:36)
[2018-03-05] MEDS: Senna/Docusate Sodium 8.6/50 MG Tablet PO SCH ×2 (08:50→20:36)
[2018-03-05] MEDS: Bisacodyl 10 MG Supp RECTAL SCH (08:51)
[2018-03-05] MEDS: levoFLOXacin 500 MG Tablet PO SCH (08:56)
[2018-03-05 08:57] LABS: ABG Base Excess 1.2 mmol/L (-2-2); ABG PCO2 41 mmHg (38-42); ABG PO2 224 mmHg (61-120)
[2018-03-05] MEDS ORDERED: Sodium Chloride 0.45 % Inj 1,000 ML IV.SIG ONE (09:00)
[2018-03-05] MEDS: Pantoprazole Inj 40 MG Vial IV.PUSH SCH (12:16)
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
--- NOTE | 2018-03-05 13:08 | XR ---
EXAM DATE: 03/05/2018 12:53 PM EDT AGE/SEX: 72 years / Male INDICATIONS: Dobbhoff placement. CLINICAL DATA: This is the patient's initial encounter. Patient reports that signs and symptoms have been present for 1 day and indicates a pain score of Nonresponsive. MEDICAL/SURGICAL HISTORY: None. None. COMPARISON: [facility] [place] ABDOMEN SINGLE VIEW, 02/26/2018. [facility] [place], CHEST 1V SINGLE AP, 03/04/2018. . FINDINGS: 2 frontal supine views of the abdomen demonstrate feeding tube in place with distal tip near the liga ment of Treitz in the fourth portion of the duodenum. There is a nonobstructive bowel gas pattern. Hi gh density is present within the rectum. There is airspace opacity at the left lung base. CONCLUSION: 1. Feeding tube distal tip is in the fourth portion of the duodenum near the ligament of Treitz. 2. Persistent airspace opacity at the left lung base. Electronically signed by: Lew Odonnell MD 03/05/2018 1:07 PM EDT
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
[2018-03-05] MEDS: Desmopressin Inj 4 MCG/ML Ampul SQ SCH (20:36)
[2018-03-05 21:21] LABS: Potassium 3.4 meq/L (3.5-5.1)
[2018-03-06] MEDS: Dextrose 5%/NaCl 0.45% Inj 1,000 ML IV.SIG SCH (02:04)
[2018-03-06] MEDS: Dextrose 5% in Water Inj 1,000 ML IV.SIG SCH ×3 (02:45→17:22)
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
[2018-03-06] MEDS: Levothyroxine 75 MCG Tablet PO SCH (06:31)
[2018-03-06] MEDS: Enoxaparin Inj 40 MG/0.4 ML Syringe SQ SCH (08:57)
[2018-03-06] MEDS: Desmopressin Inj 4 MCG/ML Ampul SQ SCH ×2 (08:57→21:37)
[2018-03-06] MEDS: Bisacodyl 10 MG Supp RECTAL SCH (08:58)
[2018-03-06] MEDS: Senna/Docusate Sodium 8.6/50 MG Tablet PO SCH ×2 (08:58→21:39)
[2018-03-06] MEDS: hydrALAZINE 50 MG Tablet PO SCH ×3 (08:58→17:22)
[2018-03-06] MEDS: levoFLOXacin 250 MG Tablet PO SCH (08:58)
[2018-03-06] MEDS: Lisinopril 10 MG Tablet PO SCH ×2 (08:58→21:38)
[2018-03-06 09:25] LABS: Baso % (Auto) 0.3 % (0.0-2.0); Eos # (Auto) 0.3 th/mm3 (0.0-0.4); Eos % (Auto) 2.4 % (0.0-4.0); Hematocrit 23.9 % (39.0-51.0); Hemoglobin 8.4 gm/dL (13.0-17.0); Lymph # (Auto) 0.9 th/mm3 (1.0-4.8); Lymph % (Auto) 7.7 % (9.0-44.0); Mean Corpuscular HGB Conc 34.9 % (32.0-36.0); Mean Corpuscular Hemoglobin 32.4 pg (27.0-34.0); Mean Corpuscular Volume 92.6 fL (80.0-100.0); Mean Platelet Volume 7.9 fL (7.0-11.0); Neut # (Auto) 10.1 th/mm3 (1.8-7.7); Neut % (Auto) 81.6 % (16.0-70.0); Platelet Count 283 th/mm3 (150-450); Red Blood Count 2.58 mil/mm3 (4.50-5.90); White Blood Count 12.3 th/mm3 (4.0-11.0)
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
[2018-03-06 09:58] LABS: Alanine Aminotransferase 87 U/L (12-78); Albumin 2.3 g/dL (3.4-5.0); Alkaline Phosphatase 106 U/L (45-117); Anion Gap 8 meq/L (5-15); Aspartate Aminotransferase 75 U/L (15-37); Blood Urea Nitrogen 39 mg/dL (7-18); Calcium 8.5 mg/dL (8.5-10.1); Carbon Dioxide 25.9 meq/L (21.0-32.0); Chloride 133 meq/L (98-107); Glomerular Filtration Rate 32 mL/min (>89); Glucose,Random 126 mg/dL (74-106); Potassium 3.4 meq/L (3.5-5.1); Total Protein 6.1 g/dL (6.4-8.2); Vancomycin,Random 14.8 Comment
[2018-03-06 10:04] LABS: Eosinophils 2 % (0-4); Lymphocytes 9 % (9-44); Monocytes 5 % (0-8); Myelocytes 2 % (0-0); Promyelocyte 1 % (0-0); Tallied Nucleated RBC 2 (0-0)
[2018-03-06 10:05] LABS: Platelet Estimate Normal (Normal); Platelet Morphology Normal (Normal); Sodium 167 meq/L (136-145)
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
[2018-03-06] MEDS ORDERED: Vancomycin Inj 1,750 MG in Sodium Chlor 0.9% Inj 500 ML IV.SIG ONE (12:00)
[2018-03-06] MEDS: Pantoprazole Inj 40 MG Vial IV.PUSH SCH (12:48)
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
[2018-03-06 21:58] LABS: Alanine Aminotransferase 97 U/L (12-78); Albumin 2.4 g/dL (3.4-5.0); Alkaline Phosphatase 105 U/L (45-117); Anion Gap 10 meq/L (5-15); Aspartate Aminotransferase 82 U/L (15-37); Blood Urea Nitrogen 37 mg/dL (7-18); Calcium 8.3 mg/dL (8.5-10.1); Carbon Dioxide 23.2 meq/L (21.0-32.0); Chloride 131 meq/L (98-107); Glomerular Filtration Rate 32 mL/min (>89); Glucose,Random 122 mg/dL (74-106); Potassium 3.1 meq/L (3.5-5.1); Total Protein 6.3 g/dL (6.4-8.2)
[2018-03-06 22:00] LABS: Sodium 164 meq/L (136-145)
[2018-03-06] MEDS ORDERED: Potassium Chloride 25 MEQ Effervescent Tablet PO ONE (22:35)
[2018-03-07 04:37] LABS: Baso # (Auto) 0.1 th/mm3 (0.0-0.2); Baso % (Auto) 0.4 % (0.0-2.0); Eos # (Auto) 0.4 th/mm3 (0.0-0.4); Eos % (Auto) 3.2 % (0.0-4.0); Hematocrit 25.6 % (39.0-51.0); Hemoglobin 8.4 gm/dL (13.0-17.0); Lymph # (Auto) 1.1 th/mm3 (1.0-4.8); Lymph % (Auto) 9.2 % (9.0-44.0); Mean Corpuscular HGB Conc 32.6 % (32.0-36.0); Mean Corpuscular Hemoglobin 30.4 pg (27.0-34.0); Mean Corpuscular Volume 93.2 fL (80.0-100.0); Mono # (Auto) 0.8 th/mm3 (0.0-0.9); Neut # (Auto) 9.6 th/mm3 (1.8-7.7); Neut % (Auto) 80.2 % (16.0-70.0); Platelet Count 307 th/mm3 (150-450); Red Blood Count 2.75 mil/mm3 (4.50-5.90); Red Cell Distribution Width 15.3 % (11.6-17.2)
[2018-03-07] MEDS: Levothyroxine 75 MCG Tablet PO SCH (05:00)
[2018-03-07 05:33] LABS: Sodium 164 meq/L (136-145)
[2018-03-07] MEDS: Dextrose 5% in Water Inj 1,000 ML IV.SIG SCH ×4 (05:40→22:25)
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
[2018-03-07] MEDS: Desmopressin Inj 4 MCG/ML Ampul SQ SCH (08:22)
[2018-03-07] MEDS: Enoxaparin Inj 40 MG/0.4 ML Syringe SQ SCH (08:23)
[2018-03-07] MEDS: Lisinopril 10 MG Tablet PO SCH (08:23)
[2018-03-07] MEDS: hydrALAZINE 50 MG Tablet PO SCH ×3 (08:23→17:32)
[2018-03-07] MEDS: levoFLOXacin 250 MG Tablet PO SCH (08:23)
[2018-03-07] MEDS: Senna/Docusate Sodium 8.6/50 MG Tablet PO SCH ×2 (08:24→21:00)
[2018-03-07] MEDS: Bisacodyl 10 MG Supp RECTAL SCH (08:24)
[2018-03-07 09:03] LABS: Alanine Aminotransferase 102 U/L (12-78); Albumin 2.4 g/dL (3.4-5.0); Alkaline Phosphatase 106 U/L (45-117); Anion Gap 9 meq/L (5-15); Aspartate Aminotransferase 90 U/L (15-37); Blood Urea Nitrogen 38 mg/dL (7-18); Calcium 8.2 mg/dL (8.5-10.1); Carbon Dioxide 23.2 meq/L (21.0-32.0); Chloride 132 meq/L (98-107); Glomerular Filtration Rate 32 mL/min (>89); Glucose,Random 109 mg/dL (74-106); Potassium 3.6 meq/L (3.5-5.1); Total Protein 6.2 g/dL (6.4-8.2)
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
[2018-03-07] MEDS: Pantoprazole Inj 40 MG Vial IV.PUSH SCH (13:04)
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
[2018-03-07] MEDS: Linezolid 600 MG Tablet PO SCH ×2 (14:44→22:31)
[2018-03-07] MEDS: Desmopressin Inj 4 MCG/ML Ampul IV.PUSH SCH (21:34)
[2018-03-08 04:18] LABS: Baso # (Auto) 0.1 th/mm3 (0.0-0.2); Baso % (Auto) 0.8 % (0.0-2.0); Eos # (Auto) 0.3 th/mm3 (0.0-0.4); Eos % (Auto) 2.9 % (0.0-4.0); Hematocrit 22.5 % (39.0-51.0); Hemoglobin 7.5 gm/dL (13.0-17.0); Mean Corpuscular HGB Conc 33.5 % (32.0-36.0); Mean Corpuscular Hemoglobin 30.9 pg (27.0-34.0); Mean Corpuscular Volume 92.3 fL (80.0-100.0); Mean Platelet Volume 8.1 fL (7.0-11.0); Mono # (Auto) 0.6 th/mm3 (0.0-0.9); Mono % (Auto) 6.3 % (0.0-8.0); Neut # (Auto) 8.1 th/mm3 (1.8-7.7); Platelet Count 292 th/mm3 (150-450); Red Blood Count 2.44 mil/mm3 (4.50-5.90); White Blood Count 10.1 th/mm3 (4.0-11.0)
[2018-03-08 04:51] LABS: Alanine Aminotransferase 96 U/L (12-78); Albumin 2.3 g/dL (3.4-5.0); Alkaline Phosphatase 107 U/L (45-117); Anion Gap 9 meq/L (5-15); Aspartate Aminotransferase 79 U/L (15-37); Blood Urea Nitrogen 39 mg/dL (7-18); Calcium 7.8 mg/dL (8.5-10.1); Carbon Dioxide 25.5 meq/L (21.0-32.0); Chloride 128 meq/L (98-107); Glomerular Filtration Rate 32 mL/min (>89); Glucose,Random 118 mg/dL (74-106); Potassium 3.1 meq/L (3.5-5.1); Total Protein 5.9 g/dL (6.4-8.2)
[2018-03-08 04:55] LABS: Sodium 162 meq/L (136-145)
[2018-03-08] MEDS: Dextrose 5% in Water Inj 1,000 ML IV.SIG SCH ×3 (05:00→17:09)
[2018-03-08 05:07] LABS: Phosphorus 3.6 mg/dL (2.5-4.9)
[2018-03-08] MEDS: Levothyroxine 75 MCG Tablet PO SCH (06:00)
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
[2018-03-08] MEDS ORDERED: Potassium Chlor 10 mEq Premix 10 MEQ/100 ML PIGGYBACK IV.SIG SCH (09:00)
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
[2018-03-08] MEDS: Enoxaparin Inj 40 MG/0.4 ML Syringe SQ SCH (09:45)
[2018-03-08] MEDS: hydrALAZINE 50 MG Tablet PO SCH ×3 (09:46→21:40)
[2018-03-08] MEDS: Potassium Chlor 10 mEq Premix 10 MEQ/100 ML PIGGYBACK IV.SIG SCH ×7 (09:46→21:40)
[2018-03-08] MEDS: Desmopressin Inj 4 MCG/ML Ampul IV.PUSH SCH ×3 (09:47→23:51)
[2018-03-08] MEDS: Bisacodyl 10 MG Supp RECTAL SCH (09:48)
[2018-03-08] MEDS: levoFLOXacin 250 MG Tablet PO SCH (09:48)
[2018-03-08] MEDS: Senna/Docusate Sodium 8.6/50 MG Tablet PO SCH ×2 (09:48→20:45)
[2018-03-08] MEDS: Linezolid 600 MG Tablet PO SCH ×2 (09:48→21:41)
--- NOTE | 2018-03-08 11:15 | FL ---
EXAM DATE: 03/08/2018 10:55 AM EDT AGE/SEX: 72 years / Male INDICATIONS: Dysphagia. CLINICAL DATA: This is the patient's subsequent encounter. Patient reports that signs and symptoms h ave been present for 1 week and indicates a pain score of 0/10. MEDICAL/SURGICAL HISTORY: Hypothyroidism. None. COMPARISON: C, CTA NECK W CONTRAST W 3D, 02/24/2018. . FLUORO TIME: 1.1 IMAGE COUNT: 0 FINDINGS: A modified barium swallow was performed with speech pathology. Patient was given a variety of liquids to swallow. Aspiration was noted with thin, nectar thick and honey thick consistencies. For a full detailed report, see report by the speech pathologist. CONCLUSION: Aspiration was identified. Electronically signed by: Wili Tuttle MD 03/08/2018 11:14 AM EDT
--- NOTE | 2018-03-08 11:49 | P.PNNP ---
Subjective Interval history: Patient much more alert today. No verbal complaints. Physical Exam Vital signs: Vital Signs 03/07/18 12:00 03/07/18 16:00 03/07/18 17:00 Temperature 98.1 F 98.3 F Pulse Rate 70 90 55 L Respiratory Rate 15 29 H 15 Blood Pressure 140/74 115/85 Pulse Oximetry 96 95 03/07/18 19:58 03/07/18 20:00 03/08/18 00:00 Temperature 99.2 F 99 F Pulse Rate 78 72 67 Respiratory Rate 19 16 13 Blood Pressure 130/72 152/73 H Pulse Oximetry 97 97 98 03/08/18 04:00 03/08/18 08:00 03/08/18 08:47 Temperature 99.1 F Pulse Rate 66 71 71 Respiratory Rate 20 20 Blood Pressure 155/74 H Pulse Oximetry 96 99 Intake & Output 03/07/18 03/08/18 03/08/18 18:59 06:59 18:59 Intake Total 1750 / 1750 500 / 500 100 / 100 Output Total 1275 / 1275 1400 / 1400 Balance 475 / 475 -900 / -900 100 / 100 Weight 84.8 kg Intake: IV 1000 / 1000 500 / 500 100 / 100 Ofirmev Inj 1,000 mg In 100 ml 100 / 100 @ 400 mls/hr IV.SIG Q6H PRN Rx# :[id number] D5W Inj 1,000 ML @ 125 mls/hr 1000 / 1000 100 / 100 IV.SIG .Q8H KALIE Rx#:[id number] Zyvox 600 mg Premix 300 ML @ 300 / 300 300 mls/hr IV.SIG NOW ONE Rx#: [id number] KCl 10 mEq Premix Inj 10 meq In 100 / 100 100 ml @ 100 mls/hr IV.SIG Q1H KALIE Rx#:[id number] Oral 200 / 200 0 / 0 Tube Feeding 350 / 350 Water Bolus Amount 200 / 200 Output: Urine 1275 / 1275 1400 / 1400 Other: # Incontinent Voids 1 Date of Last Bowel Movement 03/07/18 03/08/18 03/08/18 # Bowel Movements 1 2 # Incontinent Bowel Movements 0 Narrative: GENERAL: Not in respiratory distress. Responding appropriately to questions. SKIN: Warm and dry. HEAD: Normocephalic. EYES: No scleral icterus. No injection or drainage. NECK: Supple, trachea midline. No JVD. CARDIOVASCULAR: Regular rate and rhythm without murmurs, gallops, or rubs. RESPIRATORY: Breath sounds equal bilaterally. No accessory muscle use. GASTROINTESTINAL: Abdomen soft, non-tender, nondistended. MUSCULOSKELETAL: No cyanosis, or edema.. - Urinary Catheter Management Indwelling Temp Sensing Catheter Cath placed during this visit: yes, but has since been removed by the nurse Reason for continuing: Decision to DC catheter Insertion date: 02/24/18 Insertion time: 14:00 Removal date: 03/04/18 Removal time: 17:48 Assessment and Plan - Assessment (1) Hypernatremia Code(s): E87.0 - Hyperosmolality and hypernatremia Status: Acute Plan: Secondary to diabetes insipidus. Serum sodium level improvement has slowed significantly. Will increase D5W as well as desmopressin with monitoring of serum sodium levels. Discussed with patient pathogenesis of his hypernatremia. Continue to monitor Na level 6h. Goal of correction of serum sodium level would be that the maximum correction of serum sodium level every 24 hours be 10 mEq or less. Issue here is a free water deficit. Do not believe we need to hold tube feeding in view of hypernatremia. (2) Acute renal insufficiency Code(s): N28.9 - Disorder of kidney and ureter, unspecified Status: Acute Plan: Secondary to intravascular volume depletion from diabetes insipidus. (3) Subarachnoid bleed Code(s): I60.9 - Nontraumatic subarachnoid hemorrhage, unspecified Status: Acute Plan: Management per critical care/neurosurgery.
[2018-03-08] MEDS: Pantoprazole Inj 40 MG Vial IV.PUSH SCH (13:00)
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
[2018-03-09] MEDS: Dextrose 5% in Water Inj 1,000 ML IV.SIG SCH ×4 (00:40→09:39)
[2018-03-09] MEDS: Potassium Chlor 10 mEq Premix 10 MEQ/100 ML PIGGYBACK IV.SIG SCH (01:45)
[2018-03-09 03:22] LABS: Baso % (Auto) 0.4 % (0.0-2.0); Eos # (Auto) 0.3 th/mm3 (0.0-0.4); Eos % (Auto) 3.8 % (0.0-4.0); Hematocrit 22.9 % (39.0-51.0); Hemoglobin 7.7 gm/dL (13.0-17.0); Lymph # (Auto) 1.1 th/mm3 (1.0-4.8); Lymph % (Auto) 12.2 % (9.0-44.0); Mean Corpuscular HGB Conc 33.6 % (32.0-36.0); Mean Corpuscular Volume 92.3 fL (80.0-100.0); Mean Platelet Volume 8.3 fL (7.0-11.0); Mono # (Auto) 0.7 th/mm3 (0.0-0.9); Mono % (Auto) 7.3 % (0.0-8.0); Neut # (Auto) 6.8 th/mm3 (1.8-7.7); Neut % (Auto) 76.3 % (16.0-70.0); Platelet Count 274 th/mm3 (150-450); Red Blood Count 2.48 mil/mm3 (4.50-5.90)
[2018-03-09 04:06] LABS: Alanine Aminotransferase 91 U/L (12-78); Albumin 2.2 g/dL (3.4-5.0); Alkaline Phosphatase 108 U/L (45-117); Anion Gap 8 meq/L (5-15); Aspartate Aminotransferase 63 U/L (15-37); Blood Urea Nitrogen 33 mg/dL (7-18); Calcium 7.7 mg/dL (8.5-10.1); Carbon Dioxide 26.1 meq/L (21.0-32.0); Chloride 123 meq/L (98-107); Glomerular Filtration Rate 35 mL/min (>89); Glucose,Random 145 mg/dL (74-106); Potassium 3.1 meq/L (3.5-5.1); Total Protein 5.7 g/dL (6.4-8.2)
[2018-03-09 04:12] LABS: Sodium 157 meq/L (136-145)
[2018-03-09] MEDS: Levothyroxine 75 MCG Tablet PO SCH (06:55)
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
[2018-03-09] MEDS: levoFLOXacin 250 MG Tablet PO SCH (09:38)
[2018-03-09] MEDS: Enoxaparin Inj 40 MG/0.4 ML Syringe SQ SCH (09:38)
[2018-03-09] MEDS: Senna/Docusate Sodium 8.6/50 MG Tablet PO SCH ×2 (09:38→20:31)
[2018-03-09] MEDS: hydrALAZINE 50 MG Tablet PO SCH ×3 (09:38→17:10)
[2018-03-09] MEDS: Bisacodyl 10 MG Supp RECTAL SCH (09:38)
[2018-03-09] MEDS: Linezolid 600 MG Tablet PO SCH ×2 (09:38→20:31)
[2018-03-09] MEDS ORDERED: Potassium Chloride 25 MEQ Effervescent Tablet PO ONE (12:00)
[2018-03-09] MEDS: Pantoprazole Inj 40 MG Vial IV.PUSH SCH (12:49)
[2018-03-09] MEDS: Sodium Chloride 0.45 % Inj 1,000 ML IV.CONT SCH (12:50)
[2018-03-09] MEDS ORDERED: Acetaminophen 325 MG Tablet PO PRN (16:22)
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
--- NOTE | 2018-03-09 17:18 | P.PNNP ---
Subjective Interval history: Patient much more alert today. No verbal complaints. Daughter by bedside. Physical Exam Vital signs: Vital Signs 03/08/18 20:00 03/08/18 20:32 03/09/18 00:00 Temperature 98.8 F 98.9 F Pulse Rate 78 58 L Respiratory Rate 28 H 19 Blood Pressure 144/69 H 156/75 H Pulse Oximetry 98 97 97 03/09/18 04:00 03/09/18 08:00 03/09/18 10:00 Temperature 97.7 F 98.2 F Pulse Rate 70 70 69 Respiratory Rate 20 18 14 Blood Pressure 135/65 157/85 H Pulse Oximetry 97 98 99 03/09/18 12:00 03/09/18 12:37 03/09/18 16:00 Temperature 98.5 F 98.5 F Pulse Rate 75 67 81 Respiratory Rate 20 17 21 Blood Pressure 146/70 H 128/68 Pulse Oximetry 98 98 Intake & Output 03/08/18 03/09/18 03/09/18 18:59 06:59 18:59 Intake Total 2600 / 2600 1700 / 1700 2100 / 2100 Output Total 1600 / 1600 Balance 1000 / 1000 1700 / 1700 2100 / 2100 Intake: IV 2600 / 2600 1200 / 1200 2100 / 2100 Ofirmev Inj 1,000 mg In 100 ml 100 / 100 @ 400 mls/hr IV.SIG Q6H PRN Rx# :[id number] D5W Inj 1,000 ML @ 140 mls/hr 2000 / 2000 1000 / 1000 2000 / 2000 IV.SIG .Q7H9M [facility] Rx#:[id number] KCl 10 mEq Premix Inj 10 meq In 600 / 600 100 / 100 100 ml @ 100 mls/hr IV.SIG Q1H [facility]IE Rx#:[id number] Oral 0 / 0 500 / 500 Output: Urine 1600 / 1600 Other: # Voids 3 Date of Last Bowel Movement 03/08/18 03/08/18 03/08/18 # Bowel Movements 1 # Incontinent Bowel Movements 0 Narrative: GENERAL: Not in respiratory distress. SKIN: Warm and dry. HEAD: Normocephalic. EYES: No scleral icterus. No injection or drainage. NECK: Supple, trachea midline. No JVD. CARDIOVASCULAR: Regular rate and rhythm without murmurs, gallops, or rubs. RESPIRATORY: Breath sounds equal bilaterally. No accessory muscle use. GASTROINTESTINAL: Abdomen soft, non-tender, nondistended. MUSCULOSKELETAL: No cyanosis, or edema.. - Urinary Catheter Management Indwelling Temp Sensing Catheter Cath placed during this visit: yes, but has since been removed by the nurse Reason for continuing: Decision to DC catheter Insertion date: 02/24/18 Insertion time: 14:00 Removal date: 03/04/18 Removal time: 17:48 Assessment and Plan - Assessment (1) Hypernatremia Code(s): E87.0 - Hyperosmolality and hypernatremia Status: Acute Plan: Secondary to diabetes insipidus. Desmopressin IV fluids adjusted by critical care/vascular. At this point in time will defer to critical care in regard management of diabetes insipidus. Creatinine level improving with IV hydration. Plans being made to discharge patient to rehab. At this point in time will see patient as needed during this admission. If transferred to an in-house rehab facility recommend consultation with on- call residential coordinator if required. Goal of correction of serum sodium level would be that the maximum correction of serum sodium level every 24 hours be 10 mEq or less. (2) Acute renal insufficiency Code(s): N28.9 - Disorder of kidney and ureter, unspecified Status: Acute Plan: Secondary to intravascular volume depletion from diabetes insipidus. Improving. (3) Subarachnoid bleed Code(s): I60.9 - Nontraumatic subarachnoid hemorrhage, unspecified Status: Acute Plan: Management per critical care/neurosurgery.
[2018-03-10] MEDS: Sodium Chloride 0.45 % Inj 1,000 ML IV.CONT SCH ×3 (00:35→13:21)
[2018-03-10 04:41] LABS: Calcium 7.5 mg/dL (8.5-10.1); Carbon Dioxide 24.4 meq/L (21.0-32.0); Potassium 3.3 meq/L (3.5-5.1)
[2018-03-10] MEDS: Levothyroxine 75 MCG Tablet PO SCH (06:22)
[2018-03-10] MEDS ORDERED: Potassium Chloride 25 MEQ Effervescent Tablet PO ONE (08:00)
[2018-03-10] MEDS: Linezolid 600 MG Tablet PO SCH (08:55)
[2018-03-10] MEDS: levoFLOXacin 250 MG Tablet PO SCH (08:55)
[2018-03-10] MEDS: hydrALAZINE 50 MG Tablet PO SCH ×2 (08:55→13:22)
[2018-03-10] MEDS ORDERED: Desmopressin Inj 4 MCG/ML Ampul IV.PUSH SCH (09:00)
[2018-03-10] MEDS: Bisacodyl 10 MG Supp RECTAL SCH (09:05)
[2018-03-10] MEDS: Enoxaparin Inj 40 MG/0.4 ML Syringe SQ SCH (09:05)
[2018-03-10] MEDS: Senna/Docusate Sodium 8.6/50 MG Tablet PO SCH (09:05)
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
[2018-03-10] MEDS: Pantoprazole Inj 40 MG Vial IV.PUSH SCH (13:22)
--- NOTE | 2018-03-10 13:51 | P.PNID ---
Infectious Disease Brief Note Chart review documentation No fevers WBC ok CXR improving. Stop date for antibiotics in chart. Plan for [facility] per Trauma notes. Will sign off please call back if any change in clinical condition or questions. Vital Signs - 24 hr 03/09/18 16:00 03/09/18 19:29 03/09/18 20:00 Temperature 98.5 F 98.4 F Pulse Rate 81 77 89 Respiratory Rate 21 17 22 Blood Pressure 128/68 122/58 L Pulse Oximetry 98 92 L 94 L 03/10/18 00:00 03/10/18 04:00 03/10/18 07:40 Temperature 98.2 F 98.4 F Pulse Rate 78 68 82 Respiratory Rate 22 18 22 Blood Pressure 144/72 H 137/66 Pulse Oximetry 96 97 96 03/10/18 08:00 03/10/18 12:00 Temperature 98.6 F 98.6 F Pulse Rate 98 H 94 H Respiratory Rate 19 19 Blood Pressure 133/61 106/61 Pulse Oximetry 98 98 Laboratory Results - last 24 hr 03/10/18 03:45 Sodium 154 H Potassium 3.3 L Chloride 121 H Carbon Dioxide 24.4 Anion Gap 9 BUN 27 H Creatinine 1.84 H Estimated GFR 36 L Random Glucose 143 H Calcium 7.5 L
[2018-03-10] MEDS ORDERED: Potassium Chloride 25 MEQ Effervescent Tablet PO SCH (20:00)
--- NOTE | 2018-03-24 19:10 | MP ---
cc: Reilly Magana MD DATE OF OPERATION: 03/01/2018 PREOPERATIVE DIAGNOSES: Traumatic brain injury, secretions and atelectasis of both lungs with collapse of the lower lobes. POSTOPERATIVE DIAGNOSES: Traumatic brain injury, secretions and atelectasis of both lungs with collapse of the lower lobes. PROCEDURE PERFORMED: Bronchoscopy and washout of the lungs. SURGEON: Reilly Magana MD ANESTHESIA: General. ESTIMATED BLOOD LOSS: None. DESCRIPTION OF PROCEDURE: The patient was prepared in usual fashion and then the bronchoscope was inserted through the trachea into the bronchial tree. The patient had massive amounts of secretions bilaterally that were cleaned out with the bronchoscope and washed out with large amounts of saline. Second and third generation operation of the bronchi were reached and cleaned out. Cultures were sent. The bronchoscope was withdrawn. The patient tolerated the procedure well and chest x-ray appeared to be clearing up. MD COTY Felton/roopa/ , 04:43 PM , 04:48 PM
== END 2018-03-10 13:12 | disposition short-term general hospital (02) ==
LOC: NEPI 11:25 → EDBD 11:44 → NEDA 11:44 → N03 12:15
PROVIDERS: ADMIT Surgery; ATTEND Surgery